=== PATIENT | female | born 1995 | race Caucasian/White ===

== ENCOUNTER 2018-04-11 06:05 | Inpatient (IN) ==
[2018-04-11] MEDS ORDERED: ONDANSETRON 4 MG/2 ML VIAL IV PRN (07:05)
[2018-04-11] MEDS ORDERED: MEPERIDINE 50 MG/1 ML VIAL IV PRN (07:05)
[2018-04-11] MEDS ORDERED: BUTORPHANOL 2 MG/ML VIAL IV PRN (07:05)
[2018-04-11 07:27] LABS: Basophils # 0.1 10*3/uL (0.0-0.2); Basophils % 0.3 % (0.0-0.8); Eosinophils # 0.1 10*3/uL (0.0-0.87); Eosinophils % 0.6 % (0.00-10.9); Hematocrit 34.1 VOL% (35.7-47.0); Hemoglobin 11.3 GM/DL (12.0-16.0); Immature Granulocytes % 0.7 %; Immature Granulocytes Absolute 0.12 #; Lymphocytes # 2.3 10*3/uL (1.4-4.0); Lymphocytes % 13.5 % (21.3-54.2); Mean Corpuscular HGB Conc 33.1 GM/DL (32-36); Mean Corpuscular Hemoglobin 28 PG (27-34); Mean Corpuscular Volume 85.5 FL (87-102); Mean Platelet Volume 11.8 FL (9.6-12.0); Monocytes # 1.1 10*3/uL (0.11-0.8); Monocytes % 6.4 % (1.7-12.7); Neutrophils # 13.3 10*3/uL (1.4-7.4); Neutrophils % 78.5 % (38.7-73.9); Platelet Count 154 T/CUMM (130-400); Red Blood Count 3.99 MC/CUMM (3.8-5.5)
[2018-04-11] MEDS: LACTATED RINGERS 1,000 ML IV SCH ×3 (07:28→10:56)
[2018-04-11] MEDS ORDERED: OXYTOCIN/LR 20 UNIT/1,000 ML BAG IV SCH (07:30)
[2018-04-11] MEDS ORDERED: FAMOTIDINE 20 MG/2 ML VIAL IV ONE (07:39)
[2018-04-11] MEDS ORDERED: ePHEDrine 50 MG/ML AMP IV PRN (07:39)
[2018-04-11] MEDS ORDERED: PROMETHAZINE 25 MG/1 ML VIAL IM ONE (07:39)
[2018-04-11] MEDS ORDERED: diphenhydrAMINE 50 MG/1 ML VIAL IV PRN ×2 (07:39)
[2018-04-11] MEDS ORDERED: CITRIC ACID/SODIUM CITRATE 30 ML UDCUP PO ONE (07:39)
[2018-04-11] MEDS ORDERED: ONDANSETRON 4 MG/2 ML VIAL IV ONE (07:39)
[2018-04-11] MEDS ORDERED: NALOXONE 0.4 MG/ML VIAL IV PRN (07:39)
[2018-04-11] MEDS ORDERED: LACTATED RINGERS 1,000 ML IV ONE (07:39)
[2018-04-11] MEDS ORDERED: hydrOXYzine HCL 25 MG/1 ML VIAL IM PRN (07:39)
[2018-04-11] MEDS ORDERED: fentaNYL 2 MCG/ROPIV 0.2% EPID 100 ML EPIDURAL SCH (08:00)
[2018-04-11] MEDS ORDERED: PHENYLEPHRINE 1 MG/10 ML SYRINGE IV ONE (08:41)
[2018-04-11 10:01] LABS: Apearance,Urine CLEAR (Clear); Bacteria,Urine Occasional /HPF (Few); Bilirubin,Urine Negative (Negative); Blood, Urine Negative (Negative); Glucose,Urine (UA) Negative (Negative); Ketones,Urine Negative (Negative); Mucus,Urine Occasional /LPF (Occasional); Nitrite,Urine Negative (Negative); Protein,Urine Negative; RBC,Urine 1 /HPF (0-4); Urine Color Yellow (Yellow); Urine Specific Gravity 1.012 (1.001-1.035); Urine Urobilinogen < 2.0 EU/DL (0.2-1.0); WBC,Urine 1 /HPF (0-6)
[2018-04-11] MEDS ORDERED: miSOPROStol 200 MCG TABLET ONE (13:38)
[2018-04-11] MEDS ORDERED: LIDOCAINE 1% 50 ML VIAL ONE (13:38)
[2018-04-11] MEDS ORDERED: METHYLERGONOVINE 0.2 MG/1 ML AMP ONE (13:39)
[2018-04-11] MEDS ORDERED: CARBOPROST TROMETHAMINE 250 MCG/ML AMP IM ONE (13:39)
[2018-04-11] MEDS ORDERED: METHYLERGONOVINE 0.2 MG/1 ML AMP IM ONE (14:20)
[2018-04-11] MEDS: IBUPROFEN 800 MG TABLET PO PRN (23:40)
[2018-04-11] MEDS ORDERED: IBUPROFEN 800 MG TABLET ONE (23:48)
[2018-04-12] MEDS: LACTATED RINGERS 1,000 ML IV SCH (01:31)
[2018-04-12 07:19] LABS: Basophils % 0.2 % (0.0-0.8); Eosinophils # 0.1 10*3/uL (0.0-0.87); Eosinophils % 0.4 % (0.00-10.9); Hematocrit 32.3 VOL% (35.7-47.0); Hemoglobin 10.3 GM/DL (12.0-16.0); Immature Granulocytes % 0.6 %; Lymphocytes # 2.2 10*3/uL (1.4-4.0); Lymphocytes % 12.7 % (21.3-54.2); Mean Corpuscular HGB Conc 31.9 GM/DL (32-36); Mean Corpuscular Hemoglobin 28 PG (27-34); Mean Corpuscular Volume 87.3 FL (87-102); Mean Platelet Volume 12.2 FL (9.6-12.0); Monocytes # 1.2 10*3/uL (0.11-0.8); Neutrophils # 13.5 10*3/uL (1.4-7.4); Neutrophils % 79.1 % (38.7-73.9); Platelet Count 133 T/CUMM (130-400); Red Cell Distribution Width 16.1 % (9.3-17.3)
[2018-04-12] MEDS: DOCUSATE SODIUM 100 MG CAPSULE PO PRN ×2 (08:57→20:18)
[2018-04-12] MEDS ORDERED: INFLUENZA VIRUS VACCINE 0.5 ML SYRINGE IM ONE (12:40)
[2018-04-13 07:16] VITALS: BP 108/64
[2018-04-13] MEDS: DOCUSATE SODIUM 100 MG CAPSULE PO PRN (09:45)
[2018-04-13] MEDS: IBUPROFEN 800 MG TABLET PO PRN (09:45)
== END 2018-04-13 10:45 | disposition home or self-care (01) | DRG 768 ==
LOC: N.LDOUT 06:05 → N.LD 06:07 → N.OB 17:29
PROVIDERS: ADMIT Obstetrics & Gynecology; ATTEND Obstetrics & Gynecology

== ENCOUNTER 2020-11-12 06:21 | Inpatient (IN) ==
[2020-11-12] MEDS ORDERED: MEPERIDINE 50 MG/1 ML VIAL IV PRN (06:37)
[2020-11-12] MEDS ORDERED: BUTORPHANOL 2 MG/ML VIAL IV PRN (06:37)
[2020-11-12] MEDS ORDERED: ONDANSETRON 4 MG/2 ML VIAL IV PRN ×2 (06:37→18:34)
[2020-11-12 06:56] LABS: Basophils % 0.2 % (0.0-0.8); Eosinophils # 0.1 10*3/uL (0.0-0.87); Eosinophils % 0.9 % (0.00-10.9); Hematocrit 34.8 VOL% (35.7-47.0); Hemoglobin 11.6 GM/DL (12.0-16.0); Immature Granulocytes % 0.5 %; Immature Granulocytes Absolute 0.04 #; Lymphocytes # 1.9 10*3/uL (1.4-4.0); Lymphocytes % 21.8 % (21.3-54.2); Mean Corpuscular HGB Conc 33.3 GM/DL (32-36); Mean Corpuscular Volume 86.6 FL (87-102); Mean Platelet Volume 11.8 FL (9.6-12.0); Monocytes % 6.6 % (1.7-12.7); Platelet Count 150 T/CUMM (130-400); Red Blood Count 4.02 MC/CUMM (3.8-5.5); Red Cell Distribution Width 16.7 % (9.3-17.3); White Blood Count 8.5 T/CUMM (4-12)
[2020-11-12] MEDS ORDERED: OXYTOCIN/LR 20 UNIT/1,000 ML BAG IV SCH (07:00)
[2020-11-12] MEDS: LACTATED RINGERS 1,000 ML IV SCH ×3 (07:15→13:27)
[2020-11-12 07:16] LABS: Albumin 2.6 G/DL (3.4-5.0); Bilirubin,Total 0.7 MG/DL (0.2-1.0); Calcium 8.7 MG/DL (8.5-10.1); Osmolality,Calculated 273.5 MOS/KG (273-304); Potassium 3.5 MMOL/L (3.5-5.1); Total Protein 6.8 G/DL (6.4-8.2)
[2020-11-12] MEDS ORDERED: LACTATED RINGERS 1,000 ML IV ONE (12:10)
[2020-11-12] MEDS ORDERED: CITRIC ACID/SODIUM CITRATE 30 ML UDCUP PO ONE (12:10)
[2020-11-12] MEDS ORDERED: NALOXONE 0.4 MG/ML VIAL IV PRN (12:10)
[2020-11-12] MEDS ORDERED: ePHEDrine 50 MG/ML VIAL IV PRN (12:10)
[2020-11-12] MEDS ORDERED: FAMOTIDINE 20 MG/2 ML VIAL IV ONE (12:10)
[2020-11-12] MEDS ORDERED: ONDANSETRON 4 MG/2 ML VIAL IV ONE (12:10)
[2020-11-12] MEDS ORDERED: PROMETHAZINE 25 MG/1 ML VIAL IM ONE (12:10)
[2020-11-12] MEDS ORDERED: fentaNYL 2 MCG/ROPIV 0.2% EPID 100 ML EPIDURAL SCH (12:30)
[2020-11-12] MEDS ORDERED: TRANEXAMIC ACID 1,000 MG/10 ML VIAL ONE (16:43)
[2020-11-12] MEDS ORDERED: METHYLERGONOVINE 0.2 MG/1 ML AMP ONE (16:43)
[2020-11-12] MEDS ORDERED: miSOPROStoL 200 MCG TABLET ONE (16:43)
[2020-11-12] MEDS ORDERED: CARBOPROST TROMETHAMINE 250 MCG/ML AMP IM ONE (16:43)
[2020-11-12] MEDS ORDERED: OXYTOCIN/LR 20 UNIT/1,000 ML BAG IV ONE ×2 (16:43→18:34)
[2020-11-12 18:26] LABS: Cord Arterial Blood HCO3 21.3 MMOL/L
[2020-11-12 18:29] LABS: Cord Venous Blood HCO3 22.3 MMOL/L; Cord Venous Blood PCO2 45.2 MMHG; Cord Venous Blood PO2 24.6
[2020-11-12] MEDS ORDERED: LANOLIN 50% CREAM 0.3 OZ TUBE TOP PRN (18:34)
[2020-11-12] MEDS ORDERED: RHO(D) IMMUNE GLOBULIN 300 MCG SYRINGE IM ONE (18:34)
[2020-11-12] MEDS ORDERED: BENZOCAINE 20%/MENTHOL 0.5% SPRAY 56 GM CAN TOP PRN (18:34)
[2020-11-12] MEDS ORDERED: WITCH HAZEL PADS 100/JAR TOP PRN (18:34)
[2020-11-12] MEDS ORDERED: ACETAMINOPHEN 325 MG TABLET PO PRN (18:34)
[2020-11-12] MEDS ORDERED: oxyCODONE/ACETAMINOPHEN 5-325 MG TABLET PO PRN ×2 (18:34)
[2020-11-12] MEDS ORDERED: MEASLES/MUMPS/RUBELLA VACCINE 0.5 ML VIAL SUBCUT ONE (18:34)
[2020-11-12] MEDS ORDERED: HYDROCORTISONE 2.5% RECTAL CREAM 30 GM TUBE TOP PRN (18:34)
[2020-11-12] MEDS ORDERED: DIPH/TET/ACEL PERT BOOSTER VACCINE 0.5 ML VIAL IM ONE (18:34)
[2020-11-12] MEDS ORDERED: BISACODYL 10 MG SUPP RECTAL PRN (18:34)
[2020-11-13] MEDS: IBUPROFEN 800 MG TABLET PO PRN ×3 (04:21→21:42)
[2020-11-13 06:21] LABS: Basophils % 0.3 % (0.0-0.8); Eosinophils # 0.1 10*3/uL (0.0-0.87); Eosinophils % 0.4 % (0.00-10.9); Hematocrit 31.6 VOL% (35.7-47.0); Hemoglobin 10.2 GM/DL (12.0-16.0); Immature Granulocytes % 0.4 %; Immature Granulocytes Absolute 0.04 #; Lymphocytes # 2.5 10*3/uL (1.4-4.0); Lymphocytes % 22.3 % (21.3-54.2); Mean Corpuscular HGB Conc 32.3 GM/DL (32-36); Mean Corpuscular Volume 88.8 FL (87-102); Mean Platelet Volume 12.4 FL (9.6-12.0); Neutrophils % 69.6 % (38.7-73.9); Platelet Count 131 T/CUMM (130-400); Red Blood Count 3.56 MC/CUMM (3.8-5.5); Red Cell Distribution Width 16.7 % (9.3-17.3); White Blood Count 11.3 T/CUMM (4-12)
[2020-11-13] MEDS: DOCUSATE SODIUM 100 MG CAPSULE PO SCH ×2 (08:48→21:42)
[2020-11-14] MEDS: DOCUSATE SODIUM 100 MG CAPSULE PO SCH (09:59)
[2020-11-14 14:29] VITALS: BP 107/68
== END 2020-11-14 13:35 | disposition home or self-care (01) | DRG 768 ==
LOC: N.LD 06:21 → N.OB 23:18
PROVIDERS: ADMIT Obstetrics & Gynecology; ATTEND Obstetrics & Gynecology